=== PATIENT | female | born 1960 | race Caucasian/White ===

== ENCOUNTER 2017-08-29 09:46 | Emergency (ER) | payer OTHER ==
[~2017-08-29] VITALS: Ht 170.2 cm; Wt 74.7 kg
[~2017-08-29 09:46] MED LIST: CHOL100010 PO; MTR800 PO; OXAZ10CA PO
[2017-08-29 09:51] VITALS: BP 116/70; PULSE 106; TEMP 36.8; O2SAT 98; Ht 170.2 cm; Wt 74.7 kg
--- NOTE | 2017-08-29 18:19 | EMERGENCY ROOM VISIT NOTE ---
History Report prepared by Kieran: Aly Valenzuela Under the Supervision of: Dr. David Pike M.D. First contact with patient: 09:55 Chief Complaint: FOREIGNBODY ANY BODY PART Stated Complaint: HEARING AIDE TIP STUCK IN EAR CANAL History of Present Illness The patient is a 57 year old female who presents to the Emergency Room with complaints of a foreign body to her left ear that began this morning. While she was trying to change battery in her hearing aid, she could not find the tip of the device. She then began to have a throbbing ache sensation to her left ear. Someone looked in her ear and noticed that the tip was lodged in the canal. She denies any decreased ability to hear. Pt denies LOC, headache, fevers, chills, visual changes, neck pain, no hearing loss, skin changes, lymphadenopathy, rash , or other complaints. She has a past medical history of resolved pneumonia and a cholecystectomy. Source of History: patient Onset: this morning Position: ear (left) Symptom Intensity: moderate Quality: other (Foreign Body) Timing: constant Review of Systems See HPI for pertinent positives and negatives. A total of six systems were reviewed and were otherwise negative. Past Medical & Surgical Medical Problems: (1) Anxiety (2) Cholecystectomy (3) ENDOSCOPY (4) Partial hysterectomy (5) SHORTNESS OF BREATH (6) TOBACCO USE DISORDER Family History Diabetes mellitus Gallbladder disease Heart disease Hypertension Lung disease Social History Smoking Status: Current Every Day Smoker Drug Use: none Marital Status: Occupation Status: employed Current/Historical Medications Scheduled Ibuprofen (Ibuprofen), 800 MG PO TID Scheduled PRN Cholecalciferol (Vitamin D), 5,000 INTER.UNIT PO DAILY PRN for Pain Oxazepam (Oxazepam), 10 MG PO TID PRN for Anxiety Allergies Coded Allergies: Codeine (Verified Allergy, Intermediate, `, 09/30/14) Iodinated Contrast Media (Verified Allergy, Unknown, HIVES, 09/30/14) Physical Exam Vital Signs Date Time Temp Pulse Resp B/P (MAP) Pulse Ox O2 Delivery O2 Flow Rate FiO2 08/29/17 09:51 36.8 106 17 116/70 98 Physical Exam GENERAL: Awake, alert, well-appearing, in no distress HENT: Normocephalic, atraumatic. Oropharynx unremarkable. Plastic foreign body noted in left ear. Removed. TM and canal are normal. NEURO: Normal sensorium. No sensory or motor deficits noted. SKIN: No rash or jaundice noted. Medical Decision & Procedures Procedure Indication: Foreign body in the left year The foreign body in the left ear canal was removed with alligator forceps. ED Course 0955: The patient was evaluated in room B2. A complete history and physical exam was performed. 1000: I removed the foreign body from the patient's ear at this time. Please see the procedure note for more information. 1011: I reevaluated the patient. Discussed results and discharge instructions: She verbalized understanding and agreement. The patient is ready for discharge. Medical Decision The patient presented with a foreign body in the ear canal. This was removed as above. The patient did well. She was discharged. Medication Reconcilliation Current Medication List: was personally reviewed by me Blood Pressure Screening Patient's blood pressure: Normal blood pressure Blood pressure disposition: Did not require urgent referral Impression Primary Impression: Foreign body in left ear Scribe Attestation The scribe's documentation has been prepared under my direction and personally reviewed by me in its entirety. I confirm that the note above accurately reflects all work, treatment, procedures, and medical decision making performed by me. Departure Information Dispostion Home / Self-Care Referrals Quique Aguilar D.O. (PCP) Forms HOME CARE DOCUMENTATION FORM, IMPORTANT VISIT INFORMATION, WORK / SCHOOL INSTRUCTIONS Patient Instructions My [facility] Additional Instructions Continue current medications. Follow-up with your family doctor as needed. Return to the ER immediately for spreading redness, fevers, pus-like drainage, severe pain, or as needed. Problem Qualifiers Primary Impression: Foreign body in left ear Encounter type: initial encounter Qualified Codes: T16.2XXA - Foreign body in left ear, initial encounter
== END 2017-08-29 10:21 | disposition home or self-care (01) ==
LOC: C.EDB 09:48
DX: T16.2XXA Foreign body in left ear, initial encounter (principal); X58.XXXA Exposure to other specified factors, initial encounter; Z87.01 Personal history of pneumonia (recurrent); Z90.49 Acquired absence of other specified parts of digestive tract; F41.9 Anxiety disorder, unspecified; Z90.711 Acquired absence of uterus with remaining cervical stump; F17.210 Nicotine dependence, cigarettes, uncomplicated; Z83.3 Family history of diabetes mellitus; Z82.49 Family history of ischemic heart disease and other diseases of the circulatory system